=== PATIENT | male | born 1980 | race Caucasian/White ===

== ENCOUNTER 2022-10-27 14:07 | Emergency (ER) | payer BC ==
[~2022-10-27] VITALS: Ht 175.3 cm; Wt 81.6 kg
[2022-10-27 14:24] VITALS: BP_SYST 142
--- NOTE | 2022-10-27 14:30 | NUR ---
Placed in room 07 . Placed on satellite project site monitor, blood pressure machine and pulse oximeter. To gown for exam. Side rails up.
--- NOTE | 2022-10-27 14:36 | NUR ---
PT BIB SELF FROM WORK C/O ELEVATED HR >120. PT STATES WAS SITTING AT WORK WHEN APPLE WATCH WARNED OF ELEVATED HR. PT DENIES ANY PAIN, SOB, ALAN, OR N/V. PT HX OF APPENDECTOMY AND PTSD. PT ON WELBUTRIN. PT VAPES NICOTINE. PT RESTING COMFORTABLY WITH RAILS UP.
--- NOTE | 2022-10-27 14:40 | NUR ---
MD DR FUETNES AT BEDSIDE
[2022-10-27 15:56] VITALS: BP_SYST 143
--- NOTE | 2022-10-27 15:56 | NUR ---
Patient given written and verbal discharge instructions and verbalizes understanding. ER MD discussed with patient the results and treatment provided. Patient in stable condition. ID arm band removed. Patient educated on pain management and to follow up with PMD. Pain Scale . Opportunity for questions provided and answered.
== END 2022-10-27 15:56 | disposition home or self-care (01) ==
LOC: SED 14:07
DX: I49.3 Ventricular premature depolarization (principal); R00.2 Palpitations; Z79.899 Other long term (current) drug therapy
CPT/HCPCS: 93005; 99283